=== PATIENT | male | born 1980 | race African-American/Black ===

== ENCOUNTER 2023-06-26 08:25 | Emergency (ER) | payer BC, SELFPAY ==
[2023-06-26 09:50] LABS: SARS-CoV-2 NAA Rapid Test Not Detected (NotDetected)
== END 2023-06-26 08:48 | disposition home or self-care (01) ==
LOC: CSHERS 08:25
DX: J20.9 Acute bronchitis, unspecified (principal); Z87.891 Personal history of nicotine dependence
CPT/HCPCS: 99284